=== PATIENT | male | born 1990 | race Caucasian/White ===

== ENCOUNTER 2020-05-19 10:25 | Emergency (ER) | payer SELFPAY ==
[2020-05-19] MEDS ORDERED: Octyl 2-Cyanoacrylate 1 Tube TOP ONE (11:29)
[2020-05-19] MEDS ORDERED: Diphtheria,Pertussis(Acell),Tetanus Vaccine 0.5 ML Syringe IM ONE (11:29)
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
== END 2020-05-19 12:20 ==
LOC: MW.ED 10:25
DX: S11.91XA Laceration without foreign body of unspecified part of neck, initial encounter (principal); Z23 Encounter for immunization; W26.0XXA Contact with knife, initial encounter
CPT/HCPCS: 12002; 90471; 90715; 99282; 99283-25

== ENCOUNTER 2020-06-30 03:09 | Emergency (ER) | payer SELFPAY ==
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
== END 2020-06-30 03:31 ==
LOC: MW.ED 03:09
DX: Z02.89 Encounter for other administrative examinations (principal)
CPT/HCPCS: 82947; 99282; 99283

== ENCOUNTER 2020-10-17 09:59 | Emergency (ER) | payer SELFPAY ==
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
== END 2020-10-17 11:21 ==
LOC: MW.ED 09:59
DX: S81.811A Laceration without foreign body, right lower leg, initial encounter (principal); W18.09XA Striking against other object with subsequent fall, initial encounter
CPT/HCPCS: 12001; 99283-25

== ENCOUNTER 2021-12-23 09:01 | Emergency (ER) | payer SELFPAY | END 2021-12-23 09:53 | disposition home or self-care (01) | LOC: MW.ED 09:01 | DX: L01.00 Impetigo, unspecified (principal) | CPT/HCPCS: 99282 ==

== ENCOUNTER 2023-02-23 01:17 | Emergency (ER) | payer SELFPAY ==
[2023-02-23] MEDS ORDERED: Lidocaine/Epineph/Tetracaine 3 ML Syringe TOP ONE (01:29)
[2023-02-23] MEDS ORDERED: Fluorescein 1 MG Ophth Strip EYERT ONE (01:33)
[2023-02-23] MEDS ORDERED: Tetracaine HCl/PF 0.5% 4 ML Bottle EYEBOTH ONE (01:42)
[2023-02-23] MEDS ORDERED: Proparacaine 0.5% Ophth Soln 15 ML Bottle EYERT ONE (01:45)
[2023-02-23] MEDS ORDERED: Acetaminophen 325 MG Tab PO ONE (02:04)
[2023-02-23] MEDS ORDERED: Bacitracin Oint 1 GM U/D Packet TOP ONE (04:26)
== END 2023-02-23 05:38 | disposition home or self-care (01) ==
LOC: MW.ED 01:17
DX: S09.90XA Unspecified injury of head, initial encounter (principal); S02.121A Fracture of orbital roof, right side, initial encounter for closed fracture; S02.19XA Other fracture of base of skull, initial encounter for closed fracture; S01.511A Laceration without foreign body of lip, initial encounter; S00.211A Abrasion of right eyelid and periocular area, initial encounter; W10.9XXA Fall (on) (from) unspecified stairs and steps, initial encounter; Y93.01 Activity, walking, marching and hiking
CPT/HCPCS: 12014; 70450; 70486; 99283; A9270; J3490